=== PATIENT | female | born 1940 | race Caucasian/White ===

== ENCOUNTER → 2016-08-29 | Outpatient (CLI) | payer MEDICARE, OTHER ==
[~2016-08-29] MED LIST: AVELOX400 M1 PO; BENTYL20 MG PO; CORICIDIN COUGH1 TAB PO; FIBER PILL PO; MOBIC PO; NEURONTIN PO; NEXIUM PO; PERCOCET5/325 PO; ZYRTEC10 M2 PO
--- NOTE | ~2016-08-29 | MY11 ---
[facility] A Service of [facility] RADIOLOGY TEXT RESULTS PATIENT: TAISHA CAMERON LOCATION: [facility] : 36 UNIT #: [id number] AGE: [address]: Irma Adamson MD SEX: F ORDER DR: [id number] [address] [address] [id number] O MR#: [id number] Acc #: [id number] NAME: TAISHA CAMERON : 1940 SEX: F STUDY DATE/TIME: 08/29/2016 13:39 UNIT: [facility] ROOM: STUDY DESCRIPTION: MY Mammogram Screening Dig Joseph Attending Physician: Irma Adamson M.D. Referring Physician: Irma Adamson M.D. Ordering Physician: Irma Adamson M.D. Primary Care Physician: Irma Adamson M.D. MEDICAL IMAGING REPORT This report is preliminary unless electronic signature is present. EXAM Digital screening mammogram 08/29/2016 HISTORY 76-year-old woman no risk elevation. Annual screen. COMPARISON Mammograms date to 12/29/2006 with most recent 08/28/2015. FINDINGS Digital imaging of each breast was completed utilizing a two-view examination of each breast in craniocaudal and mediolateral-oblique projections. Review and interpretation of digital mammograms include a second review in conjunction with FDA-approved CAD device. There is a normal parenchymal presentation bilaterally consistent with the patient's age. There are no breast masses imaged and no parenchymal asymmetry is visualized. There are no suspicious microcalcifications and I see no focal architectural disturbance. IMPRESSION Negative screening digital mammogram. One-year followup recommended. ADDENDUM Breast parenchyma is fatty replaced. Patients over the age of 40 are entered into a reminder system with target due date for the next mammogram. A result letter will also be sent to the patient. BIRADS: 1 Negative [facility] A Service of [facility] RADIOLOGY TEXT RESULTS PATIENT: TAISHA CAMERON LOCATION: [facility] : 36 UNIT #: [id number] AGE: [address]: Irma Adamson MD SEX: F ORDER DR: Dictated by... Terell Bhatia M.D. THIS IS AN ELECTRONICALLY VERIFIED REPORT Terell Bhatia M.D. at 08/30/2016 7:04 AM JC/yasir TD: 08/30/2016 06:08 JOB #: [id number] MEDICAL IMAGING REPORT Page 1 of 1
== END | disposition home or self-care (01) ==
LOC: SMAM 12:50
DX: Z12.31 Encounter for screening mammogram for malignant neoplasm of breast (principal)
CPT/HCPCS: G0202

== ENCOUNTER → 2016-09-30 | Outpatient (CLI) | payer MEDICARE, OTHER ==
[2016-09-30 12:01] LABS: THYROID STIMULATING HORMONE 2.92 uIU/ml (0.34-5.60)
[2016-09-30 15:00] LABS: FREE T3 3.4 pg/mL (2.5-3.9)
[2016-09-30 15:01] LABS: FREE THYROXIN (T4) 1.08 ng/dL (0.58-1.64)
[2016-10-05 03:31] LABS: CALCIUM (PTHINTACT) 9.9 mg/dL (8.6-10.4)
[2016-10-06 07:12] LABS: THYROID PEROXIDASE AB (TPO) 8 IU/mL (<9)
== END | disposition home or self-care (01) ==
LOC: SLAB 11:00
PROVIDERS: Specialist
DX: E21.3 Hyperparathyroidism, unspecified (principal); E55.9 Vitamin D deficiency, unspecified; L65.9 Nonscarring hair loss, unspecified
CPT/HCPCS: 36415; 82306; 82310; 83735; 83970; 84439; 84443; 84481; 86376